=== PATIENT | female | born 1990 ===

== ENCOUNTER 2017-07-18 18:00 | Emergency (ER) | payer OTHER ==
[2017-07-18 18:01] VITALS: BMI 27.2
[2017-07-18 18:08] VITALS: TEMP 98.9; O2SAT 98
[2017-07-18] MEDS ORDERED: DiphenhydrAMINE 50 mg/ml Inj IM STA (18:14)
--- NOTE | 2017-07-18 18:14 | ED PDOC ---
Arrival/HPI - General Chief Complaint: Allergic Reaction Time Seen by Provider: 07/18/17 18:07 Historian: Patient - History of Present Illness Narrative History of Present Illness (Text): 07/18/17 18:08 26 y/o female, no significant pmh, penicillin allergy, c/o itching rash all over the body x 1.5 hours s/p eating tosadas for the first time. Itching rash with hives spread through the body with feeling warm, no lip or tongue swelling , no difficulty swallowing, no drooling, no night sweat, no other medical or psychological complaints. Past Medical History - Provider Review Nursing Documentation Reviewed: Yes - Past History Past History: Non-Contributing - Infectious Disease Hx of Infectious Diseases: None - Tetanus Immunization Tetanus Immunization: Unknown - Cardiac Hx Cardiac Disorders: No Hx Hypertension: No - Pulmonary Hx Respiratory Disorders: No Hx Tuberculosis: No - Neurological Hx Neurological Disorder: No HX Cerebrovascular Accident: No Hx Seizures: No - HEENT Hx HEENT Disorder: No - Renal Hx Renal Disorder: No - Endocrine/Metabolic Hx Endocrine Disorders: No - Hematological/Oncological Hx Blood Disorders: No Hx Cancer: No - Integumentary Hx Dermatological Disorder: No - Musculoskeletal/Rheumatological Hx Musculoskeletal Disorders: No - Gastrointestinal Hx Gastrointestinal Disorders: No - Genitourinary/Gynecological Hx Genitourinary Disorders: No Hx Sexually Transmitted Diseases: No - Psychiatric Hx Psychophysiologic Disorder: Yes Hx Depression: Yes Hx Substance Use: No - Surgical History Other/Comment: D&C - Anesthesia Hx Anesthesia: Yes Family/Social History - Physician Review Nursing Documentation Reviewed: Yes Family/Social History: Unknown Family HX Smoking Status: Never Smoked Hx Alcohol Use: No Hx Substance Use: No Allergies/Home Meds Allergies/Adverse Reactions: Allergies Penicillins Allergy (Verified 01/08/17 12:33) RASH Review of Systems - Review of Systems Constitutional: absent: Fatigue, Fevers Eyes: absent: Vision Changes ENT: absent: Hearing Changes Respiratory: absent: SOB, Cough, Sputum Cardiovascular: absent: Chest Pain Gastrointestinal: absent: Abdominal Pain Musculoskeletal: absent: Arthralgias, Back Pain, Myalgias Skin: Rash, Skin Lesions. absent: Laceration, Abscess, Ulcer, Cellulitis Neurological: absent: Headache, Dizziness Physical Exam Vital Signs Reviewed: Yes Vital Signs Temp Pulse Resp BP Pulse Ox 07/18/17 18:06 98.9 F 78 18 116/75 98 Temperature: Afebrile Blood Pressure: Normal Pulse: Regular Respiratory Rate: Normal Appearance: Positive for: Well-Appearing, Non-Toxic, Comfortable Pain Distress: None Mental Status: Positive for: Alert and Oriented X 3 - Systems Exam Head: Present: Atraumatic, Normocephalic Pupils: Present: PERRL Extroacular Muscles: Present: EOMI Conjunctiva: Present: Normal Mouth: Present: Moist Mucous Membranes, Normal Lips, Normal Tounge, Normal Teeth , Other (no periorbital swelling). No: Drooling, Trismus Pharnyx: No: ERYTHEMA, EXUDATE, TONSILS ENLARGED, Peritonsilar Swelling, Muffled /Hoarse Voice, Strider, Soft Palate/Uvular Edema Nose (External): Present: Atraumatic. No: Abrasion, Contusion, Laceration Nose (Internal): Present: Normal Inspection, No Active Bleeding. No: Rhinorrhea , Septal Hematoma, Epistaxis Neck: Present: Normal Range of Motion Respiratory/Chest: Present: Clear to Auscultation, Good Air Exchange. No: Respiratory Distress, Accessory Muscle Use, Wheezes, Decreased Breath Sounds, Rales, Retracting, Rhonchi, Tachypneic, Tender to Palpation, Other Cardiovascular: Present: Regular Rate and Rhythm, Normal S1, S2. No: Murmurs Abdomen: Present: Normal Bowel Sounds. No: Tenderness, Distention, Peritoneal Signs Back: Present: Normal Inspection Upper Extremity: Present: Normal Inspection. No: Cyanosis, Edema Lower Extremity: Present: Normal Inspection. No: Edema Neurological: Present: GCS=15, CN II-XII Intact, Speech Normal, Motor Func Grossly Intact Skin: Present: Warm, Dry, Rashes (visible scatterd hives on the bilateral upper and lower extremities including the abdomen and posterior back, no bullseye or target signs, no streaking or ulcers. ), Normal Color Psychiatric: Present: Alert, Oriented x 3, Normal Insight, Normal Concentration Medical Decision Making ED Course and Treatment: 07/18/17 18:19 -benadryl/pepcid/prednisone -observe and reassess 07/18/17 19:18 -Urine hcg negative -Hives resolved, pt. feels much better. -Discharge home with benadryl, pepcid, prednisone, avoid eating the same food again, follow up with your own pmd and biometrics specialist within 2 days, return to the ER for any new or worsening signs or symptoms. - Medication Orders Current Medication Orders: Discontinued Medications Diphenhydramine HCl (Benadryl) 50 mg IM STAT STA Stop: 07/18/17 18:15 Last Admin: 07/18/17 18:30 Dose: 50 mg IM Administration Charges Document 07/18/17 18:30 IT (Rec: 07/18/17 18:30 IT [id number]) Injection Site MAR Injection Site Left Gluteus Garry Charges for Administration # of IM Administrations 1 Famotidine (Pepcid) 20 mg PO STAT STA Stop: 07/18/17 18:15 Last Admin: 07/18/17 18:30 Dose: 20 mg Prednisone (Prednisone Tab) 60 mg PO STAT ONE Stop: 07/18/17 18:15 Last Admin: 07/18/17 18:30 Dose: 60 mg - PA / PROGRAM ENGAGEMENT DIRECTOR / Resident Statement MD/DO has reviewed & agrees with the documentation as recorded. Disposition/Present on Arrival - Present on Arrival Any Indicators Present on Arrival: No History of DVT/PE: No History of Uncontrolled Diabetes: No Urinary Catheter: No History of Decub. Ulcer: No History Surgical Site Infection Following: None - Disposition Have Diagnosis and Disposition been Completed?: Yes Diagnosis: Allergic reaction, Urticaria Disposition: HOME/ ROUTINE Disposition Time: 18:21 Patient Plan: Discharge Patient Problems: Current Active Problems Problem Status Onset Allergic reaction Acute Urticaria Acute Condition: IMPROVED Additional Instructions: Discharge home with benadryl, pepcid, prednisone, avoid eating the same food again, follow up with your own pmd and biometrics specialist within 2 days, return to the ER for any new or worsening signs or symptoms. Prescriptions: DiphenhydrAMINE [Benadryl] 50 mg PO QID PRN #24 cap PRN Reason: Other Famotidine [Pepcid] 20 mg PO BID #14 tab predniSONE [Prednisone] 2 tab PO DAILY #8 tab Referrals: Millie Johnson MD [Staff Provider] - Follow up with primary Forms: [employer] (French), WORK NOTE
[2017-07-18 19:22] VITALS: BP 120/80; PULSE 80; RESP 16
== END 2017-07-18 19:22 | disposition home or self-care (01) ==
LOC: ED 18:00
DX: L50.0 Allergic urticaria (principal)
CPT/HCPCS: 96372; 99283; J1200